=== PATIENT | male | born 1950 | race Caucasian/White ===

== ENCOUNTER 2017-11-16 15:08 | Inpatient (IN) ==
[2017-11-16] MEDS ORDERED: 0.9 % Sodium Chloride 1,000 ML IVC ONE (15:21)
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
[2017-11-16] MEDS ORDERED: Tdap (Boostrix) Vaccine 0.5 ML SYRINGE IM ONE (15:35)
[2017-11-16] MEDS ORDERED: *HR* FentaNYL (PF) 100 MCG/2 ML VIAL IVP ONE ×2 (16:19→19:20)
[2017-11-16] MEDS ORDERED: Ondansetron 4 MG/2 ML VIAL IVP ONE ×2 (16:19→21:01)
[2017-11-16 16:40] LABS: Basophils # 0.1 K/mcL (0.0-0.2); Basophils % 0.6 %; Eosinophils % 0.3 %; Hematocrit 48.7 % (37.5-50.1); Hemoglobin 16.8 g/dL (12.9-16.9); Immature Granulocytes % 0.3 % (0-4); Lymphocytes # 1.4 K/mcL (0.6-4.6); Lymphocytes % 12.8 %; Mean Corpuscular HGB Conc 34.5 g/dL (31.6-35.5); Mean Corpuscular Hemoglobin 32.2 pg (28.0-33.3); Mean Corpuscular Volume 93.5 fL (83.0-100.0); Mean Platelet Volume 8.9 fL (9.4-12.4); Monocytes % 8.9 %; Neutrophils # 8.4 K/mcL (1.6-8.9); Platelet Count 233 K/mcL (140-400); Red Blood Count 5.21 M/mcL (4.19-5.50); Red Cell Distribution Width 12.3 % (11.5-14.5); Segmented Neutrophils % 77.1 %
[2017-11-16 16:56] LABS: Ethanol 60 mg/dL (0-10)
[2017-11-16 16:57] LABS: BUN/Creatinine Ratio 8 (6-26); Blood Urea Nitrogen 4 mg/dL (8-23); Calcium 9.5 mg/dL (8.6-10.3); Carbon Dioxide 22 mEq/L (23-29); Chloride 100 mEq/L (98-107); Glucose 102 mg/dL (70-105); Osmolality,Calculated 273 (280-300); Potassium 3.8 mEq/L (3.5-5.1); Sodium 133 mEq/L (136-145); eGFR For African Americans > 60 (> 60); eGFR For Non-African Americans > 60 (> 60)
[2017-11-16 17:05] LABS: Acetaminophen < 1.0 mcg/mL (10-30)
[2017-11-16 17:06] LABS: Salicylate < 5.0 mg/dL (15.0-30.0)
[2017-11-16 17:36] LABS: Albumin 4.1 g/dL (3.5-5.7); Albumin/Globulin Ratio 1.5 (1.1-2.2); Bilirubin,Direct 0.3 mg/dL (0.0-0.2); Bilirubin,Indirect 0.8 mg/dL (0.0-1.2); Bilirubin,Total 1.1 mg/dL (0.3-1.0); Globulin 2.8 g/dL (2.4-3.5); Total Protein 6.9 g/dL (6.4-8.9)
[2017-11-16] MEDS ORDERED: Piperacillin/Tazobactam 3.375 GM in 0.9 % Sodium Chloride Mini Bag 100 ML IVPB ONE (17:59)
[2017-11-16 19:46] LABS: Bilirubin,Urine Negative (Negative); Blood,Urine Negative (Negative); Clarity,Urine Clear (Clear); Color,Urine Yellow (Yellow); Glucose,Urine (UA) Normal (Normal); Ketones,Urine 15 mg/dL (Negative); Leukocyte Esterase,Urine Negative (Negative); Nitrite,Urine Negative (Negative); Protein,Urine Negative (Neg-Trace); Specific Gravity,Urine > 1.030 (1.010-1.025); Urobilinogen,Urine Normal (Normal)
[2017-11-16 20:29] LABS: Amphetamine Screen,Urine Negative ng/mL (Cutoff=1000); Barbiturate Screen,Urine Negative ng/mL (Cutoff=200); Benzodiazepines Screen,Urine Negative ng/mL (Cutoff=200); Cannabinoid Screen,Urine Negative ng/mL (Cutoff = 50); Cocaine Screen,Urine Negative ng/mL (Cutoff= 300); Opiate Screen,Urine Negative ng/mL (Cutoff=300); Phencyclidine Screen,Urine Negative ng/mL (Cutoff=25)
[2017-11-16] MEDS ORDERED: Ondansetron 4 MG/2 ML VIAL ONE ×2 (21:01→21:42)
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
[2017-11-16] MEDS ORDERED: Albuterol 2.5 MG/3 ML NEBULIZER IH ONE (21:34)
--- NOTE | 2017-11-16 21:38 | Anesthesia Evaluation PreOp ---
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: Denies Any Significant HX Other Medical History: Denies Any Significant HX Anesthesia History: No Prior Anesthetic Complications Alcohol Use: recent Drug use: none Medications and Allergies 3 Allergy/AdvReac Type Severity Reaction Status Date / Time quetiapine [From Seroquel] Allergy Nausea Verified 05/28/15 00:23 - Meds/Allergy Pre-op Review Medications Reviewed: Yes Allergies Reviewed: Yes Beta Blockers on Current Med List: No Anesthesia Results - Labs 11/16/17 16:07 11/16/17 16:07 - Imaging EKG: report reviewed Anesthesia Exam O2 Sat Height 1.83 m Weight 90.718 kg O2 Sat by Pulse Oximetry 96 O2 Sat by Pulse Oximetry 95 O2 Sat by Pulse Oximetry 95 Vital Signs Temp Pulse Resp BP Pulse Ox 97.9 F 76 18 133/78 95 11/16/17 15:09 11/16/17 15:09 11/16/17 15:09 11/16/17 15:09 11/16/17 15:09 Height: 6'0 Weight: 200 lbs NPO (# of Hours): MN Pain Scale: 1 - HEENT Pupil (Motor): Pupils equal, EOMI Mallampati: III Teeth: Edentulous Oral Opening: Less than or equal to 3 - COUNTER POCKET TRIMMER LOC: Oriented COUNTER POCKET TRIMMER Motor: Normal RUE, Normal LUE, Normal RLE, Normal LLE, Normal Face COUNTER POCKET TRIMMER Sensory: Normal: RUE, LUE, RLE, LLE, Face - Cardiac Rhythm: Regular Murmur: None JVD: No Carotid Bruit: No - Pulmonary Breath Sounds: bilateral Clear Respiratory Effort: Symmetrical Anesthesia Assess/Plan ASA Score: 2 Modified Tera Scale for Level of Consciousness: Cooperative, oriented, and tranquil Anesthetic Plan: General Monitoring Plan: Standard Monitors Recovery Plan: PACU (Discussed GA, agrees to proceed)
[2017-11-16] MEDS ORDERED: *HR* Propofol 200 MG/20 ML VIAL IVP ONE (21:41)
[2017-11-16] MEDS ORDERED: *HR* FentaNYL (PF) 100 MCG/2 ML VIAL ONE (21:41)
[2017-11-16] MEDS ORDERED: Lidocaine -MPF 2% 2 ML VIAL ONE (21:42)
[2017-11-16] MEDS ORDERED: Dexamethasone 4 MG/ML VIAL ONE (21:42)
[2017-11-16] MEDS ORDERED: *HR* Succinylcholine 200 MG/10 ML VIAL IVP ONE (21:42)
[2017-11-16] MEDS ORDERED: *HR* Rocuronium Bromide 50 MG/5 ML VIAL ONE (21:42)
[2017-11-16] MEDS ORDERED: Ringers Solution, Lactated 1,000 ML ONE (22:06)
[2017-11-16] MEDS ORDERED: Acetaminophen IV 1,000 MG/100 ML INFUS..BTL ONE (22:35)
[2017-11-16] MEDS ORDERED: MORPHINE SUL Oral CONC 10 MG/0.5 ML ORAL.SYG SL PRN (22:56)
[2017-11-16] MEDS ORDERED: Neostigmine Methylsulfate 3 MG/3 ML SYRINGE ONE (23:16)
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
--- NOTE | 2017-11-17 00:02 | Anesthesia Evaluation Post Op ---
Date of Encounter: 11/17/17 Time of Encounter: 00:10 - Vital Signs Vital Signs: Vital Signs/O2 Sat/Glucose, Most Current Temp Pulse Resp BP Pulse Ox 11/16/17 23:53 70 18 140/79 96 11/16/17 23:43 68 18 151/90 96 11/16/17 23:33 97.5 F L 63 16 133/80 98 11/16/17 21:49 18 92 11/16/17 21:34 82 16 154/81 96 - Lungs Lungs: Clear Ascult./Percussion - Airway Airway: Non-obstructed - Cardiovascular Regular Rate - Mental Status Mental Status: Alert & Oriented, Answers Appropriately - Pain Pain Scale: 1 - Nausea Vomiting Nausea Vomiting: Not Present - Hydration Hydration: Ice chips - Discharge PostOp Status: Transfer Patient to floor
[2017-11-17] MEDS ORDERED: *HR* Metoprolol 5 MG/5 ML VIAL IVP PRN (00:13)
[2017-11-17] MEDS: D5% in 0.45% NACL w KCl 20 MEQ/1,000 ML MLS IVC SCH ×2 (01:01→11:06)
[2017-11-17] MEDS: *HR* OxyCODONE/APAP 5/325 TABLET PO PRN ×2 (01:01→08:10)
[2017-11-17] MEDS: traMADol 50 MG TABLET PO PRN ×3 (04:30→21:16)
[2017-11-17] MEDS: *HR* Enoxaparin 40 MG/0.4 ML SYRINGE SQ SCH (06:12)
[2017-11-17] MEDS ORDERED: *HR* LORazepam 2 MG/ML VIAL IVP PRN (08:25)
[2017-11-17 09:57] LABS: Basophils % 0.1 %; Hematocrit 46.3 % (37.5-50.1); Immature Granulocytes % 0.4 % (0-4); Lymphocytes # 0.9 K/mcL (0.6-4.6); Lymphocytes % 6.9 %; Mean Corpuscular HGB Conc 34.6 g/dL (31.6-35.5); Mean Corpuscular Hemoglobin 32.5 pg (28.0-33.3); Mean Corpuscular Volume 93.9 fL (83.0-100.0); Mean Platelet Volume 9.2 fL (9.4-12.4); Monocytes % 7.2 %; Neutrophils # 11.4 K/mcL (1.6-8.9); Platelet Count 230 K/mcL (140-400); Red Blood Count 4.93 M/mcL (4.19-5.50); Red Cell Distribution Width 12.6 % (11.5-14.5); Segmented Neutrophils % 85.4 %
[2017-11-17] MEDS: Thiamine (B-1) 100 MG TABLET PO SCH (09:59)
[2017-11-17] MEDS: Folic Acid 1 MG TABLET PO SCH (09:59)
[2017-11-17] MEDS: Vitamin B Complex/Vit C/Vit E 1 EACH TABLET PO SCH (09:59)
[2017-11-17 10:14] LABS: BUN/Creatinine Ratio 10 (6-26); Blood Urea Nitrogen 6 mg/dL (8-23); Calcium 9.2 mg/dL (8.6-10.3); Carbon Dioxide 26 mEq/L (23-29); Chloride 102 mEq/L (98-107); Glucose 141 mg/dL (70-105); Osmolality,Calculated 278 (280-300); Potassium 4.1 mEq/L (3.5-5.1); Sodium 134 mEq/L (136-145); eGFR For African Americans > 60 (> 60); eGFR For Non-African Americans > 60 (> 60)
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
[2017-11-17] MEDS ORDERED: Ondansetron 4 MG/2 ML VIAL IVP PRN (14:30)
[2017-11-17] MEDS ORDERED: Lidocaine OINT 35.44 GM TUBE TP ONE (15:06)
[2017-11-17] MEDS ORDERED: *HR* OxyCODONE Immed Rel 5 MG TABLET PO PRN (15:07)
[2017-11-17] MEDS ORDERED: Ketorolac 15 MG/ML VIAL IVP PRN (15:08)
[2017-11-17] MEDS: OXYCODONE Oral CONC 10 MG/0.5 ML ORAL.SYG SL PRN (16:13)
[2017-11-17] MEDS: 0.9 % Sodium Chloride 1,000 ML IVC SCH (16:13)
[2017-11-17] MEDS: Chloraseptic Spray 177 ML BOTTLE MM PRN (21:16)
[2017-11-18] MEDS: 0.9 % Sodium Chloride 1,000 ML IVC SCH (00:19)
[2017-11-18] MEDS: Chloraseptic Spray 177 ML BOTTLE MM PRN ×4 (01:12→21:32)
[2017-11-18] MEDS ORDERED: *HR* LORazepam 2 MG/ML VIAL IVP ONE (01:27)
[2017-11-18 05:08] LABS: Basophils % 0.3 %; Eosinophils % 0.1 %; Hematocrit 44.1 % (37.5-50.1); Hemoglobin 14.7 g/dL (12.9-16.9); Immature Granulocytes % 0.3 % (0-4); Lymphocytes # 1.8 K/mcL (0.6-4.6); Lymphocytes % 14.9 %; Mean Corpuscular HGB Conc 33.3 g/dL (31.6-35.5); Mean Corpuscular Hemoglobin 32.3 pg (28.0-33.3); Mean Corpuscular Volume 96.9 fL (83.0-100.0); Mean Platelet Volume 9.4 fL (9.4-12.4); Monocytes # 1.3 K/mcL (0.0-1.3); Monocytes % 10.4 %; Neutrophils # 8.9 K/mcL (1.6-8.9); Platelet Count 204 K/mcL (140-400); Red Blood Count 4.55 M/mcL (4.19-5.50); Red Cell Distribution Width 12.8 % (11.5-14.5)
[2017-11-18 05:26] LABS: BUN/Creatinine Ratio 11 (6-26); Blood Urea Nitrogen 7 mg/dL (8-23); Calcium 9.2 mg/dL (8.6-10.3); Carbon Dioxide 31 mEq/L (23-29); Chloride 102 mEq/L (98-107); Glucose 97 mg/dL (70-105); Osmolality,Calculated 284 (280-300); Potassium 3.6 mEq/L (3.5-5.1); Sodium 138 mEq/L (136-145); eGFR For African Americans > 60 (> 60); eGFR For Non-African Americans > 60 (> 60)
[2017-11-18] MEDS: *HR* Enoxaparin 40 MG/0.4 ML SYRINGE SQ SCH (06:08)
[2017-11-18] MEDS ORDERED: Potassium Chloride 40 MEQ, Lidocaine 1% 2 ML in D5% in Water 500 ML IVPB ONE (06:30)
[2017-11-18] MEDS: D5% in 0.45% NACL w KCl 20 MEQ/1,000 ML MLS IVC SCH ×2 (07:37→21:11)
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
[2017-11-18] MEDS: Vitamin B Complex/Vit C/Vit E 1 EACH TABLET PO SCH (08:52)
[2017-11-18] MEDS: Thiamine (B-1) 100 MG TABLET PO SCH (08:52)
[2017-11-18] MEDS: Folic Acid 1 MG TABLET PO SCH (08:52)
[2017-11-18] MEDS: Pantoprazole 40 MG VIAL IVP SCH (08:53)
[2017-11-18] MEDS: OXYCODONE Oral CONC 10 MG/0.5 ML ORAL.SYG SL PRN ×3 (08:53→22:47)
[2017-11-18] MEDS: traMADol 50 MG TABLET PO PRN (13:33)
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
[2017-11-18] MEDS: Thiamine (B-1) 100 MG, Folic Acid 1 MG, MVI, adult with vitamin K 10 ML in 0.9 % Sodi... IVPB SCH (17:54)
[2017-11-19] MEDS: traMADol 50 MG TABLET PO PRN ×3 (04:07→21:04)
[2017-11-19] MEDS: D5% in 0.45% NACL w KCl 20 MEQ/1,000 ML MLS IVC SCH ×2 (04:30→14:40)
[2017-11-19] MEDS: OXYCODONE Oral CONC 10 MG/0.5 ML ORAL.SYG SL PRN ×3 (04:58→22:29)
[2017-11-19] MEDS: *HR* Enoxaparin 40 MG/0.4 ML SYRINGE SQ SCH (05:00)
[2017-11-19] MEDS: Vitamin B Complex/Vit C/Vit E 1 EACH TABLET PO SCH (07:46)
[2017-11-19] MEDS: Folic Acid 1 MG TABLET PO SCH (07:46)
[2017-11-19] MEDS: Thiamine (B-1) 100 MG TABLET PO SCH (07:46)
[2017-11-19] MEDS: Pantoprazole 40 MG VIAL IVP SCH (08:00)
[2017-11-19] MEDS: Chloraseptic Spray 177 ML BOTTLE MM PRN ×2 (08:00→13:59)
[2017-11-19 08:28] LABS: Basophils % 0.4 %; Eosinophils % 0.3 %; Hematocrit 39.9 % (37.5-50.1); Hemoglobin 13.4 g/dL (12.9-16.9); Immature Granulocytes % 0.4 % (0-4); Lymphocytes # 1.2 K/mcL (0.6-4.6); Lymphocytes % 12.9 %; Mean Corpuscular HGB Conc 33.6 g/dL (31.6-35.5); Mean Corpuscular Hemoglobin 32.4 pg (28.0-33.3); Mean Corpuscular Volume 96.6 fL (83.0-100.0); Mean Platelet Volume 9.2 fL (9.4-12.4); Monocytes # 0.9 K/mcL (0.0-1.3); Monocytes % 9.9 %; Neutrophils # 7.2 K/mcL (1.6-8.9); Platelet Count 187 K/mcL (140-400); Red Blood Count 4.13 M/mcL (4.19-5.50); Red Cell Distribution Width 12.3 % (11.5-14.5); Segmented Neutrophils % 76.1 %
[2017-11-19 08:42] LABS: BUN/Creatinine Ratio 11 (6-26); Blood Urea Nitrogen 6 mg/dL (8-23); Calcium 8.6 mg/dL (8.6-10.3); Carbon Dioxide 26 mEq/L (23-29); Chloride 102 mEq/L (98-107); Glucose 300 mg/dL (70-105); Osmolality,Calculated 285 (280-300); Potassium 4.4 mEq/L (3.5-5.1); Sodium 133 mEq/L (136-145); eGFR For African Americans > 60 (> 60); eGFR For Non-African Americans > 60 (> 60)
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
[2017-11-19 11:17] LABS: Magnesium 1.8 mg/dL (1.6-2.6); Phosphorous 2.4 mg/dL (2.7-4.5)
[2017-11-19] MEDS ORDERED: Tetrahydrozoline 15 ML BOTTLE RIGHT EYE PRN (16:10)
[2017-11-19] MEDS ORDERED: Tetrahydrozoline 15 ML BOTTLE BOTH EYES PRN (16:10)
[2017-11-19] MEDS ORDERED: 0.9 % Sodium Chloride 1,000 ML IVC SCH (16:15)
[2017-11-19] MEDS: Thiamine (B-1) 100 MG, Folic Acid 1 MG, MVI, adult with vitamin K 10 ML in 0.9 % Sodi... IVPB SCH (17:12)
[2017-11-20] MEDS: *HR* Enoxaparin 40 MG/0.4 ML SYRINGE SQ SCH (06:08)
[2017-11-20 09:09] LABS: BUN/Creatinine Ratio 11 (6-26); Blood Urea Nitrogen 6 mg/dL (8-23); Calcium 8.7 mg/dL (8.6-10.3); Carbon Dioxide 25 mEq/L (23-29); Chloride 102 mEq/L (98-107); Glucose 90 mg/dL (70-105); Magnesium 1.7 mg/dL (1.6-2.6); Osmolality,Calculated 275 (280-300); Phosphorous 3.2 mg/dL (2.7-4.5); Potassium 3.3 mEq/L (3.5-5.1); Sodium 134 mEq/L (136-145); eGFR For African Americans > 60 (> 60); eGFR For Non-African Americans > 60 (> 60)
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
[2017-11-20] MEDS: Pantoprazole 40 MG VIAL IVP SCH (10:03)
[2017-11-20] MEDS: Thiamine (B-1) 100 MG TABLET PO SCH (10:04)
[2017-11-20] MEDS: Vitamin B Complex/Vit C/Vit E 1 EACH TABLET PO SCH (10:04)
[2017-11-20] MEDS: Folic Acid 1 MG TABLET PO SCH (10:04)
[2017-11-20] MEDS: traMADol 50 MG TABLET PO PRN ×2 (10:08→17:44)
[2017-11-20 15:24] VITALS: BP 150/76
--- NOTE | 2017-11-22 08:56 | Electrocardiograph Report ---
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
== END 2017-11-20 18:00 | DRG 580 ==
LOC: EMEROO 15:08 → 3ANU 15:08
PROVIDERS: ADMIT Surgery; ATTEND Surgery

== ENCOUNTER 2018-01-25 08:12 | Inpatient (IN) ==
--- NOTE | 2018-01-25 08:16 | Emergency Department Note ---
Disposition Clinical Impression: Suicidal ideation Disposition: Still a Patient Referrals: NONE,PCP [Primary Care Provider] - Forms: ED Satisfaction Letter General Adult HPI - General Chief complaint: ED Psychiatric Symptoms Stated complaint: Doesn't want to be alive Time Seen by Provider: 01/25/18 08:15 - Related Data Previous Rx's Medication Instructions Recorded Ibuprofen 600 mg PO Q8HR PRN #30 tablet 11/20/17 Budesonide/Formoterol 160/4.5 1 puff IH BIDR #1 inhaler 11/27/17 [Symbicort 160/4.5] Dicyclomine [Bentyl] 20 mg PO Q6H PRN #60 capsule 11/27/17 Doxycycline 100 mg PO BID #16 capsule 11/27/17 Ipratropium/Albuterol Neb [Duoneb] 3 ml IH [id number] PRN #1 inhsol 11/27/17 Melatonin 6 mg PO HS PRN #60 tablet 11/27/17 Sertraline [Zoloft] 100 mg PO DAILY 30 Days #30 tablet 11/27/17 Tetrahydrozoline [Visine] 1 drop BOTH EYES QID PRN #1 bottle 11/27/17 Tramadol HCl [Ultram] 50 mg PO QID PRN 7 Days #28 tab 11/27/17 hydrOXYzine pamoate [HydrOXYzine 25 mg PO TID PRN 30 Days #90 11/27/17 Pamoate] capsule traZODone [TraZODone] 150 mg PO HS PRN #90 tablet 11/27/17 Allergies Allergy/AdvReac Type Severity Reaction Status Date / Time quetiapine [From Seroquel] AdvReac Dizziness Verified 01/25/18 09:02 trazodone AdvReac Dizziness Verified 01/25/18 09:02 Past Medical History - Past Medical History Medical history: Reports: COPD Surgical history: Reports: other Psychiatric history: Reports: depression, previous psychiatric hospitalization - Social History Smoking Status: Current every day smoker Smokeless Tobacco Status: No Alcohol use: Reports: recent Drug use: Reports: none Course Vital Signs Temperature 98.1 F 01/25/18 08:15 Pulse Rate 74 01/25/18 08:15 Respiratory Rate 15 01/25/18 08:15 Blood Pressure 138/80 01/25/18 08:15 O2 Sat by Pulse Oximetry 96 01/25/18 08:15 Temperature 98.1 F 01/25/18 08:15 Pulse Rate 61 01/25/18 16:51 Respiratory Rate 15 01/25/18 08:15 Blood Pressure 123/79 01/25/18 16:51 O2 Sat by Pulse Oximetry 97 01/25/18 16:51 Oxygen Delivery Oxygen Delivery Room Air Medical Decision Making - Lab Data Result diagrams: 01/25/18 08:22 01/25/18 08:22 Lab Results 01/25/18 01/25/18 01/25/18 Range/Units 08:22 08:22 08:34 WBC 7.8 (4.3-11.1) K/mcL RBC 4.93 (4.19-5.50) M/mcL Hgb 16.0 (12.9-16.9) g/dL Hct 46.3 (37.5-50.1) % MCV 93.9 (83.0-100.0) fL MCH 32.5 (28.0-33.3) pg MCHC 34.6 (31.6-35.5) g/dL RDW 13.2 (11.5-14.5) % Plt Count 300 (140-400) K/mcL MPV 8.6 L (9.4-12.4) fL Immature Gran % 0.4 (0-4) % Seg Neutrophils % 56.0 % Lymphocytes % 33.4 % Monocytes % 7.9 % Eosinophils % 0.9 % Basophils % 1.4 % Neutrophils # 4.4 (1.6-8.9) K/mcL Lymphocytes # 2.6 (0.6-4.6) K/mcL Monocytes # 0.6 (0.0-1.3) K/mcL Eosinophils # 0.1 (0.0-0.6) K/mcL Basophils # 0.1 (0.0-0.2) K/mcL Sodium 127 L (136-145) mEq/L Potassium 3.1 L (3.5-5.1) mEq/L Chloride 96 L (98-107) mEq/L Carbon Dioxide 20 L (23-29) mEq/L BUN 5 L (8-23) mg/dL Creatinine 0.58 L (0.70-1.30) mg/dL Est GFR ( Amer) > 60 (> 60) Est GFR (Non-Af Amer) > 60 (> 60) BUN/Creatinine Ratio 9 (6-26) Glucose 103 (70-105) mg/dL Calculated Osmolality 262 L (280-300) Calcium 9.4 (8.6-10.3) mg/dL Total Bilirubin 0.6 (0.3-1.0) mg/dL Direct Bilirubin 0.2 (0.0-0.2) mg/dL Indirect Bilirubin 0.4 (0.0-1.2) mg/dL AST 21 (13-39) Units/L ALT 17 (7-52) Units/L Alkaline Phosphatase 99 (34-104) Units/L Serum Total Protein 7.3 (6.4-8.9) g/dL Albumin 4.2 (3.5-5.7) g/dL Globulin 3.1 (2.4-3.5) g/dL Albumin/Globulin Ratio 1.4 (1.1-2.2) Salicylates < 2.5 L (15.0-30.0) mg/dL Urine Opiates Screen Negative (Rbewgb=819) ng/mL Acetaminophen < 10 L (10-20) mcg/mL Ur Barbiturates Screen Negative (Eitsrw=348) ng/mL Ur Phencyclidine Scrn Negative (Cutoff=25) ng/mL Ur Amphetamines Screen Negative (Huxssh=5672) ng/mL U Benzodiazepines Scrn Negative (Ikghpd=389) ng/mL Urine Cocaine Screen Negative (Cutoff= 300) ng/mL U Marijuana (THC) Screen Negative (Cutoff = 50) ng/mL Ethyl Alcohol 244 H (Less than 10) mg/dL 01/25/18 01/25/18 01/25/18 Range/Units 13:59 16:06 17:01 WBC (4.3-11.1) K/mcL RBC (4.19-5.50) M/mcL Hgb (12.9-16.9) g/dL Hct (37.5-50.1) % MCV (83.0-100.0) fL MCH (28.0-33.3) pg MCHC (31.6-35.5) g/dL RDW (11.5-14.5) % Plt Count (140-400) K/mcL MPV (9.4-12.4) fL Immature Gran % (0-4) % Seg Neutrophils % % Lymphocytes % % Monocytes % % Eosinophils % % Basophils % % Neutrophils # (1.6-8.9) K/mcL Lymphocytes # (0.6-4.6) K/mcL Monocytes # (0.0-1.3) K/mcL Eosinophils # (0.0-0.6) K/mcL Basophils # (0.0-0.2) K/mcL Sodium (136-145) mEq/L Potassium (3.5-5.1) mEq/L Chloride (98-107) mEq/L Carbon Dioxide (23-29) mEq/L BUN (8-23) mg/dL Creatinine (0.70-1.30) mg/dL Est GFR ( Amer) (> 60) Est GFR (Non-Af Amer) (> 60) BUN/Creatinine Ratio (6-26) Glucose (70-105) mg/dL Calculated Osmolality (280-300) Calcium (8.6-10.3) mg/dL Total Bilirubin (0.3-1.0) mg/dL Direct Bilirubin (0.0-0.2) mg/dL Indirect Bilirubin (0.0-1.2) mg/dL AST (13-39) Units/L ALT (7-52) Units/L Alkaline Phosphatase (34-104) Units/L Serum Total Protein (6.4-8.9) g/dL Albumin (3.5-5.7) g/dL Globulin (2.4-3.5) g/dL Albumin/Globulin Ratio (1.1-2.2) Salicylates (15.0-30.0) mg/dL Urine Opiates Screen (Oeqfbj=278) ng/mL Acetaminophen (10-20) mcg/mL Ur Barbiturates Screen (Zfhnsb=042) ng/mL Ur Phencyclidine Scrn (Cutoff=25) ng/mL Ur Amphetamines Screen (Bfeufs=2271) ng/mL U Benzodiazepines Scrn (Vyjjvt=542) ng/mL Urine Cocaine Screen (Cutoff= 300) ng/mL U Marijuana (THC) Screen (Cutoff = 50) ng/mL Ethyl Alcohol 135 H 91 H 65 H (Less than 10) mg/dL Attestation Statement - Attestation Attestation: I examined this patient and my medical decision-making was reviewed with the Resident Physician. I agree with the documented findings, disposition and treatment plan as described except to the extent set forth below. [id number] time provided Patient arrives by EMS complaining of suicidal ideation. He states he has a history of depression but has not been taking medications. He appears in no acute distress on exam. Is alert and appropriately interactive with staff. Admits to drinking alcohol prior to arrival. We will attempt to clear him medically for behavioral evaluation 06:00: Care to be endorsed to Dr. Blas at 19:00 pending 1A consultation.
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
[2018-01-25 08:33] LABS: Basophils # 0.1 K/mcL (0.0-0.2); Basophils % 1.4 %; Eosinophils # 0.1 K/mcL (0.0-0.6); Eosinophils % 0.9 %; Hematocrit 46.3 % (37.5-50.1); Immature Granulocytes % 0.4 % (0-4); Lymphocytes # 2.6 K/mcL (0.6-4.6); Lymphocytes % 33.4 %; Mean Corpuscular HGB Conc 34.6 g/dL (31.6-35.5); Mean Corpuscular Hemoglobin 32.5 pg (28.0-33.3); Mean Corpuscular Volume 93.9 fL (83.0-100.0); Mean Platelet Volume 8.6 fL (9.4-12.4); Monocytes # 0.6 K/mcL (0.0-1.3); Monocytes % 7.9 %; Neutrophils # 4.4 K/mcL (1.6-8.9); Platelet Count 300 K/mcL (140-400); Red Blood Count 4.93 M/mcL (4.19-5.50); Red Cell Distribution Width 13.2 % (11.5-14.5)
[2018-01-25 08:49] LABS: Acetaminophen < 10 mcg/mL (10-20); Alanine Aminotransferase 17 Units/L (7-52); Albumin 4.2 g/dL (3.5-5.7); Albumin/Globulin Ratio 1.4 (1.1-2.2); Alkaline Phosphatase 99 Units/L (34-104); Aspartate Amino Transferase 21 Units/L (13-39); BUN/Creatinine Ratio 9 (6-26); Bilirubin,Direct 0.2 mg/dL (0.0-0.2); Bilirubin,Indirect 0.4 mg/dL (0.0-1.2); Bilirubin,Total 0.6 mg/dL (0.3-1.0); Blood Urea Nitrogen 5 mg/dL (8-23); Calcium 9.4 mg/dL (8.6-10.3); Carbon Dioxide 20 mEq/L (23-29); Chloride 96 mEq/L (98-107); Ethanol 244 mg/dL (Less than 10); Globulin 3.1 g/dL (2.4-3.5); Glucose 103 mg/dL (70-105); Osmolality,Calculated 262 (280-300); Potassium 3.1 mEq/L (3.5-5.1); Salicylate < 2.5 mg/dL (15.0-30.0); Sodium 127 mEq/L (136-145); Total Protein 7.3 g/dL (6.4-8.9); eGFR For African Americans > 60 (> 60); eGFR For Non-African Americans > 60 (> 60)
[2018-01-25 08:55] LABS: Amphetamine Screen,Urine Negative ng/mL (Cutoff=1000); Barbiturate Screen,Urine Negative ng/mL (Cutoff=200); Benzodiazepines Screen,Urine Negative ng/mL (Cutoff=200); Cannabinoid Screen,Urine Negative ng/mL (Cutoff = 50); Cocaine Screen,Urine Negative ng/mL (Cutoff= 300); Opiate Screen,Urine Negative ng/mL (Cutoff=300); Phencyclidine Screen,Urine Negative ng/mL (Cutoff=25)
[2018-01-25] MEDS ORDERED: Potassium Chloride Elixir 20 MEQ/15 ML UDC PO ONE (10:27)
[2018-01-25] MEDS ORDERED: Ibuprofen 800 MG TABLET PO ONE (16:21)
[2018-01-25] MEDS ORDERED: Thiamine (B-1) 100 MG, Folic Acid 1 MG, MVI, adult with vitamin K 10 ML in 0.9 % Sodi... IVPB ONE (19:15)
[2018-01-25] MEDS ORDERED: *HR* LORazepam 2 MG/ML VIAL IVP PRN ×3 (20:42)
[2018-01-25] MEDS ORDERED: Naloxone 0.4 MG/ML INJ IVP PRN (20:42)
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
[2018-01-25] MEDS: Nicotine 14 MG PATCH.TD24 TD SCH (22:17)
[2018-01-25] MEDS ORDERED: *HR* LORazepam 1 MG TABLET PO ONE (23:58)
[2018-01-26] MEDS ORDERED: Ipratropium/Albuterol Neb 3 ML IH PRN (03:18)
[2018-01-26 06:13] LABS: Basophils # 0.1 K/mcL (0.0-0.2); Basophils % 1.1 %; Eosinophils # 0.1 K/mcL (0.0-0.6); Eosinophils % 1.3 %; Hematocrit 44.3 % (37.5-50.1); Hemoglobin 15.4 g/dL (12.9-16.9); Immature Granulocytes % 0.2 % (0-4); Lymphocytes # 1.9 K/mcL (0.6-4.6); Lymphocytes % 30.2 %; Mean Corpuscular HGB Conc 34.8 g/dL (31.6-35.5); Mean Corpuscular Hemoglobin 32.9 pg (28.0-33.3); Mean Corpuscular Volume 94.7 fL (83.0-100.0); Mean Platelet Volume 8.9 fL (9.4-12.4); Monocytes # 0.8 K/mcL (0.0-1.3); Monocytes % 12.3 %; Neutrophils # 3.5 K/mcL (1.6-8.9); Platelet Count 298 K/mcL (140-400); Red Blood Count 4.68 M/mcL (4.19-5.50); Red Cell Distribution Width 13.2 % (11.5-14.5); Segmented Neutrophils % 54.9 %
[2018-01-26 06:22] LABS: Alanine Aminotransferase 13 Units/L (7-52); Albumin 3.6 g/dL (3.5-5.7); Albumin/Globulin Ratio 1.3 (1.1-2.2); Alkaline Phosphatase 88 Units/L (34-104); Aspartate Amino Transferase 17 Units/L (13-39); BUN/Creatinine Ratio 8 (6-26); Bilirubin,Total 0.8 mg/dL (0.3-1.0); Blood Urea Nitrogen 5 mg/dL (8-23); Carbon Dioxide 27 mEq/L (23-29); Chloride 103 mEq/L (98-107); Chol/HDL Ratio 3.5 (0-4.9); Cholesterol 174 mg/dL (< 200); Globulin 2.7 g/dL (2.4-3.5); Glucose 99 mg/dL (70-105); HDL Cholesterol 50 mg/dL (40-59); LDL Cholesterol,Calculated 106 mg/dL (0-99); Magnesium 2.1 mg/dL (1.6-2.6); Osmolality,Calculated 279 (280-300); Potassium 3.5 mEq/L (3.5-5.1); Sodium 136 mEq/L (136-145); Total Protein 6.3 g/dL (6.4-8.9); Triglycerides 92 mg/dL (< 150); eGFR For African Americans > 60 (> 60); eGFR For Non-African Americans > 60 (> 60)
[2018-01-26] MEDS: Thiamine (B-1) 100 MG TABLET PO SCH (08:32)
[2018-01-26] MEDS: Renal Vitamin 1 MG CAPSULE PO SCH (08:32)
[2018-01-26] MEDS: Nicotine 14 MG PATCH.TD24 TD SCH (08:32)
--- NOTE | 2018-01-26 11:27 | Internal Med Progress Note ---
Date of Encounter: 01/26/18 Time of Encounter: 11:24 - Assessment and plan (1) Hyponatremia Current Visit: Yes Status: Acute Assessment and plan: Likely related to alcohol consumption Resolved. Will monitor (2) Suicidal ideation Current Visit: Yes Status: Acute Assessment and plan: Severe depression with suicidal ideation Patient has had multiple suicide attempts in the past Evaluated by Psychiatry Patient to transfer when medically stable. Last drink was <48 hours ago. (3) Alcoholism Current Visit: Yes Status: Acute Assessment and plan: Alcoholism with intoxication on presentation Does not currently appear to be in withdrawal He is not having significant visual hallucinations, tremors, tachycardia or fever Continue CIWA protocol with regular neuro checks Ativan as needed for withdrawal symptoms Replace electrolytes and vitamins CIWA scores currently 5 now is 1 Last drink was night of 01/24 (4) Depression Current Visit: Yes Status: Acute Assessment and plan: Psychiatry consulted, recommendations appreciated Qualifiers: Depression Type: major depressive disorder Major depression recurrence: recurrent Active/Remission status: currently active Major depression episode severity: severe Psychotic features: without psychotic features Qualified Code(s): F33.2 - Major depressive disorder, recurrent severe without psychotic features (5) COPD (chronic obstructive pulmonary disease) Current Visit: No Status: Chronic Assessment and plan: Not in acute exacerbation Qualifiers: COPD type: unspecified COPD Qualified Code(s): J44.9 - Chronic obstructive pulmonary disease, unspecified (6) DVT prophylaxis Current Visit: Yes Status: Acute - Time Spent With Patient Total time spent is greater than 50% in coordination of care (as documented) at patient's floor/unit and/or counseling patient: - Subjective Interval history: No acute events overnight. CIWA scores went from 5 to 1. Patient last drink night of 01/24. 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 - Constitutional Vitals: Temp Pulse Resp BP Pulse Ox 98.6 F 80 16 155/94 96 01/26/18 07:13 01/26/18 07:13 01/26/18 07:13 01/26/18 07:13 01/26/18 07:13 Exam: Gen.: Vitals noted. No acute distress. HEENT: PERRL/EOMI, oropharynx clear, Normocephalic, atraumatic Neck: Supple. No adenopathy. Cardiac: RRR, no murmur, +S1/S2 Pulmonary: CTA bilaterally, no wheezes, rales or rhonchi, equal chest expansion Abdomen: Mild tenderness to palpation throughout his abdomen Back: Nontender throughout. MSK: ROM intact, no joint swelling noted Extremities: no BLE edema, nontender calf, no cyanosis or clubbing Neuro: A&Ox3, moves all extremities, no focal deficits Psych: Patient's mood appears normal, thought pattern is coherent and goal- directed, however he does have some tendency towards flight of though style conversation - Head Head exam: Present: atraumatic, normocephalic - Eye Eye exam: Present: PERRL, conjuntiva pink, sclera anicteric Pupils: Present: PERRL - Neck Neck exam general surgery: Present: supple, trachea midline. Absent: lymphadenopathy - Respiratory Respiratory exam: Present: CTAB. Absent: accessory muscle use, rales, rhonchi, wheezes - Cardiovascular Cardiovascular exam: Present: RRR, +S1, +S2. Absent: diastolic murmur, gallop, rubs, systolic murmur - GI/Abdominal GI/Abdominal exam: Present: normal bowel sounds, soft, no peritoneal signs. Absent: distended, tenderness - Extremities Exam Extremities exam: Present: warm, radial pulses palpable and symmetrical. Absent : calf tenderness, cyanotic, pedal edema - Neurological Exam Neurological exam: Present: CN II-XII intact, oriented X3, no focal deficits. Absent: pronater drift, facial droop, speech deficit - Skin Skin exam: Present: dry, intact Internal Medicine: Result - Labs CBC & Chem 7: 01/26/18 05:25 01/26/18 05:25 Labs: Short CBC 01/26/18 Range/Units 05:25 WBC 6.4 (4.3-11.1) K/mcL Hgb 15.4 (12.9-16.9) g/dL Hct 44.3 (37.5-50.1) % Plt Count 298 (140-400) K/mcL Neutrophils # 3.5 (1.6-8.9) K/mcL BMP 01/26/18 05:25 Sodium 136 D Potassium 3.5 Chloride 103 Carbon Dioxide 27 BUN 5 L Creatinine 0.64 L Glucose 99 Calcium 9.0 Liver Function 04/29/18 Range/Units 05:25 Total Bilirubin 0.8 (0.3-1.0) mg/dL AST 17 (13-39) Units/L ALT 13 (7-52) Units/L Alkaline Phosphatase 88 (34-104) Units/L Albumin 3.6 (3.5-5.7) g/dL Consult Discharge Plan - Plan Referrals: NONE,PCP [Primary Care Provider] -
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
[2018-01-26] MEDS ORDERED: traZODone 50 MG TABLET PO PRN (16:25)
[2018-01-26] MEDS ORDERED: Tetrahydrozoline 15 ML BOTTLE BOTH EYES PRN (16:25)
[2018-01-26] MEDS ORDERED: Melatonin 3 MG TABLET PO PRN (16:25)
[2018-01-26] MEDS ORDERED: hydrOXYzine pamoate 25 MG CAPSULE PO PRN (16:25)
[2018-01-26] MEDS: Budesonide/Formoterol 160/4.5 MDI IH SCH (20:08)
[2018-01-27] MEDS: Budesonide/Formoterol 160/4.5 MDI IH SCH ×2 (08:16→20:49)
[2018-01-27] MEDS: Thiamine (B-1) 100 MG TABLET PO SCH (09:10)
[2018-01-27] MEDS: Renal Vitamin 1 MG CAPSULE PO SCH (09:10)
[2018-01-27] MEDS: Nicotine 14 MG PATCH.TD24 TD SCH (09:11)
--- NOTE | 2018-01-27 13:39 | Internal Med Progress Note ---
Date of Encounter: 01/27/18 Time of Encounter: 10:10 - Assessment and plan (1) Depression Current Visit: Yes Status: Acute Qualifiers: Depression Type: major depressive disorder Major depression recurrence: recurrent Active/Remission status: currently active Major depression episode severity: severe Psychotic features: without psychotic features Qualified Code(s): F33.2 - Major depressive disorder, recurrent severe without psychotic features (2) COPD (chronic obstructive pulmonary disease) Current Visit: No Status: Chronic Qualifiers: COPD type: unspecified COPD Qualified Code(s): J44.9 - Chronic obstructive pulmonary disease, unspecified (3) Suicidal ideation Current Visit: Yes Status: Acute (4) DVT prophylaxis Current Visit: Yes Status: Acute (5) Alcoholism Current Visit: Yes Status: Acute (6) Hyponatremia Current Visit: Yes Status: Acute - Time Spent With Patient Total time spent is greater than 50% in coordination of care (as documented) at patient's floor/unit and/or counseling patient: - Constitutional Vitals: Temp Pulse Resp BP Pulse Ox 98.7 F 76 16 140/82 98 01/27/18 11:00 01/27/18 11:00 01/27/18 11:00 01/27/18 11:00 01/27/18 11:00 Exam: General: vital signs noted, No acute distress, resting comfortably in bed HEENT: head normocephalic/atraumatic, EOMI, moist mucus membranes, Neck: Supple, FROM Cardio: RRR, no murmurs, +S1/S2 Pulm: CTAB, no wheezing, rhonchi, rales. Normal respiratory effort. Abdomen: soft, central abdomen mildly tender to palpation, BS+, nondistended Extremities: No LE edema, no calf tenderness, no cyanosis Back: normal appearance on inspection Neuro: AAOx3, no focal deficit, no speech deficit, CN II-XII grossly intact, moves extremities spontaneously MSK: Strength 5/5 throughout, no visible deformities Skin: clean, dry, intact, no visible rashes Psych: Appropriate mood and affect. Answers questions appropriately. Cooperative with exam Internal Medicine: Result - Labs CBC & Chem 7: 01/26/18 05:25 01/26/18 05:25 Consult Discharge Plan - Plan Referrals: NONE,PCP [Primary Care Provider] -
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
[2018-01-27 20:41] VITALS: BP 135/77
[2018-01-28] MEDS ORDERED: Folic Acid 1 MG TABLET PO SCH (09:00)
== END 2018-01-27 22:15 | disposition home or self-care (01) | DRG 885 ==
LOC: 3BNU 08:12 → EMEROO 08:12 → 3BNU 20:33 → 3ANU 20:47
PROVIDERS: ADMIT Internal Medicine; ATTEND Internal Medicine

== ENCOUNTER 2018-01-27 22:35 | Inpatient (IN) ==
[2018-01-28] MEDS ORDERED: *HR* LORazepam 1 MG TABLET PO PRN (00:25)
[2018-01-28] MEDS ORDERED: hydrOXYzine pamoate 25 MG CAPSULE PO PRN (00:25)
[2018-01-28] MEDS ORDERED: *HR* LORazepam 2 MG/ML VIAL IM PRN (00:25)
[2018-01-28] MEDS ORDERED: Ibuprofen 400 MG TABLET PO PRN (00:25)
[2018-01-28] MEDS ORDERED: Mag Hydrox/Al Hydrox/Simeth 30 ML UDC PO PRN (00:25)
[2018-01-28] MEDS ORDERED: Haloperidol Lactate 5 MG/ML VIAL IM PRN (00:25)
[2018-01-28] MEDS ORDERED: MOM Conc 10 ML UD.LIQ PO PRN (00:25)
[2018-01-28] MEDS ORDERED: traZODone 50 MG TABLET PO PRN (00:25)
[2018-01-28] MEDS ORDERED: Tetrahydrozoline 15 ML BOTTLE BOTH EYES PRN (00:36)
[2018-01-28] MEDS: traZODone 50 MG TABLET PO PRN ×2 (03:19→20:32)
[2018-01-28] MEDS: Ibuprofen 600 MG TABLET PO PRN ×2 (03:20→20:28)
[2018-01-28] MEDS: Melatonin 3 MG TABLET PO PRN ×2 (03:20→20:31)
[2018-01-28] MEDS: hydrOXYzine pamoate 25 MG CAPSULE PO PRN ×2 (03:20→20:37)
[2018-01-28] MEDS: *HR* LORazepam 0.5 MG TABLET PO SCH ×3 (08:46→20:37)
[2018-01-28] MEDS: Budesonide/Formoterol 160/4.5 MDI IH SCH (11:28)
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
[2018-01-29] MEDS: Budesonide/Formoterol 160/4.5 MDI IH SCH ×3 (01:30→20:58)
[2018-01-29] MEDS: *HR* LORazepam 0.5 MG TABLET PO SCH ×3 (10:00→20:58)
--- NOTE | 2018-01-29 12:05 | Psychiatry Progress Note ---
Date of Encounter: 01/29/18 Time of Encounter: 11:40 Subjective Interval history: Patient seen today , case d/w treatment team, he has been isolative and keeping to himself, he has been thinking about rehab and things he has to do. he has been worried about his Girl friend having all his info and has access to his accounts and she has used them before. he is still depress and hopeless , isolative and preoccupied. he has craving for alcohol but not as much , he is homeless and will be needing placement. peter increase zoloft to 150 mg , patient agreed to treatment plan. he states he attempted suicide when he was 8 years old , i took every pill in cabinet i was fortunate as my mother was registered nurse , and he was made to vomit. he is still depress and has issues with slee since child , he has been sleeping here better. Review of Systems Psychiatric: Reports: depression, anxiety, suicidal ideation, hopelessness Results - Vital Signs Vital Signs: Temp Pulse Resp BP 98.1 F 68 18 125/77 01/29/18 09:00 01/29/18 09:00 01/29/18 09:00 01/29/18 09:00 Assessment and Plan (1) Major depress dis, severe Current visit: No Status: Acute Risks, benefits, side effects, alternatives discussed w/pt: Yes Patient agreeable to treatment: Yes (2) Suicidal ideation Current visit: No Status: Acute Risks, benefits, side effects, alternatives discussed w/pt: Yes Patient agreeable to treatment: Yes (3) Alcoholism Current visit: No Status: Chronic Risks, benefits, side effects, alternatives discussed w/pt: Yes Patient agreeable to treatment: Yes Consult Discharge Plan - Plan Referrals: NONE,PCP [Primary Care Provider] - Psychiatry Exam - Constitutional Vitals: Temp Pulse Resp BP 98.1 F 68 18 125/77 01/29/18 09:00 01/29/18 09:00 01/29/18 09:00 01/29/18 09:00 General appearance: age & developmentally appropriate - Musculoskeletal Gait: slow Station: other Strength & Tone: normal for patient - Psychiatric Patient Orientation: Yes Person, Yes Time, Yes Place Level of alertness: Alert Behavior: cooperative, anxious Psychomotor activity: Slowed Eye Contact: Maintains Eye Contact Mood Description: Depressed, Anxious Affect description: congruent with mood Speech Volume: Soft/Quiet Speech pattern: slowed Language & Vocabulary: consistent with education Thought Process: Logical Thought Content: Yes Guilt Attention Span Ability: Capable of Focused Attention Memory Description: Grossly Intact Patient Reliability: Reliable Historian Intelligence Estimate: Average Judgment: Limited Insight: Partial
[2018-01-29] MEDS: traZODone 50 MG TABLET PO PRN (21:02)
[2018-01-30] MEDS: *HR* LORazepam 0.5 MG TABLET PO SCH ×3 (08:29→20:40)
[2018-01-30] MEDS: Budesonide/Formoterol 160/4.5 MDI IH SCH ×2 (11:33→20:42)
[2018-01-30] MEDS: Ibuprofen 600 MG TABLET PO PRN (11:57)
--- NOTE | 2018-01-30 13:06 | Psychiatry Progress Note ---
Date of Encounter: 01/30/18 Time of Encounter: 12:40 Subjective Interval history: Patient seen today , cased/w treatment team. Patient has been isolative and withdrawn , he has not showered since here and last night did not sleep more than 1 hour from 6-7. he states his mind is racing and he is feels depress and [place] , he denies suicidal ideation, he still has poor insight in his alcohol use , feels he can be sober himself , states i was raised muslim and i give up alcohol from september and october for 1 month . he is not interested in rehab. at present still depress, hopeless and poor sleep. Will START remeron 7.5 mg hs. add gabapentin 100 mg tid and consider Naltrexone 50 mg as he is interested. denies side effects. Review of Systems Psychiatric: Reports: depression, anxiety, suicidal ideation, hopelessness Results - Vital Signs Vital Signs: Temp Pulse Resp BP 97.7 F 90 16 125/81 01/30/18 08:54 01/30/18 08:54 01/30/18 08:54 01/30/18 08:54 Assessment and Plan (1) Major depress dis, severe Current visit: No Status: Acute Risks, benefits, side effects, alternatives discussed w/pt: Yes Patient agreeable to treatment: Yes (2) Suicidal ideation Current visit: No Status: Acute Risks, benefits, side effects, alternatives discussed w/pt: Yes Patient agreeable to treatment: Yes (3) Alcoholism Current visit: No Status: Chronic Risks, benefits, side effects, alternatives discussed w/pt: Yes Patient agreeable to treatment: Yes Consult Discharge Plan - Plan Referrals: [facility] [employer] [employer], [facility] [Outside] Mago Esposito [Advanced Practice Nurse] - Psychiatry Exam - Constitutional Vitals: Temp Pulse Resp BP 97.7 F 90 16 125/81 01/30/18 08:54 01/30/18 08:54 01/30/18 08:54 01/30/18 08:54 General appearance: age & developmentally appropriate, well-groomed, well- nourished - Musculoskeletal Gait: slow Station: relaxed Strength & Tone: normal for patient - Psychiatric Patient Orientation: Yes Person, Yes Time, Yes Place Level of alertness: Alert Behavior: cooperative, withdrawn Psychomotor activity: Slowed Eye Contact: Maintains Eye Contact Mood Description: Depressed, Anxious Affect description: congruent with mood Speech Volume: Soft/Quiet Speech pattern: coherent, slowed Language & Vocabulary: consistent with education Thought Process: Linear, Goal Oriented Thought Content: Yes Guilt Perceptual Disturbances: No Auditory hallucinations, No Visual hallucinations Attention Span Ability: Capable of Focused Attention Memory Description: Grossly Intact Patient Reliability: Reliable Historian Fund of knowledge: Yes abstraction ability, Yes aware of current events Intelligence Estimate: Average Judgment: Limited Insight: Partial
[2018-01-30] MEDS: Gabapentin 100 MG CAPSULE PO SCH ×2 (15:35→20:41)
[2018-01-30] MEDS: Mirtazapine 15 MG TABLET PO SCH (20:41)
[2018-01-30] MEDS: traZODone 50 MG TABLET PO PRN (20:42)
[2018-01-31] MEDS: Gabapentin 100 MG CAPSULE PO SCH ×3 (09:08→21:06)
[2018-01-31] MEDS: Budesonide/Formoterol 160/4.5 MDI IH SCH ×2 (09:09→21:07)
[2018-01-31] MEDS: *HR* LORazepam 0.5 MG TABLET PO SCH (09:09)
--- NOTE | 2018-01-31 12:16 | Psychiatry Progress Note ---
Date of Encounter: 01/31/18 Time of Encounter: 12:00 Subjective Interval history: Patient seen today , case d/w treatment team. patient more isolative and sad as his friend refused to take him and he was looking forward to that. he is very dysphroic and down , he slept well with medication , he was started on gabapentin and zoloft increased. denies side effects. poor insight in his alcohol use disorder, he is willing to try Naltrexone and it will be started today. Review of Systems Psychiatric: Reports: depression, anxiety, suicidal ideation, hopelessness Results - Vital Signs Vital Signs: Temp Pulse Resp BP 98.4 F 93 14 120/87 01/31/18 09:00 01/31/18 09:00 01/31/18 09:00 01/31/18 09:00 Assessment and Plan (1) Major depress dis, severe Current visit: No Status: Acute Plan: Continue hospitalization, Close observation, Suicide Precautions per unit protocol, Encourage participation in unit milieu, Group Therapy, Monitor sleep, Monitor appetite, Family/Supportive other meeting Risks, benefits, side effects, alternatives discussed w/pt: Yes Patient agreeable to treatment: Yes (2) Suicidal ideation Current visit: No Status: Acute Plan: Continue hospitalization, Close observation, Suicide Precautions per unit protocol, Encourage participation in unit milieu, Group Therapy, Monitor sleep, Monitor appetite, Family/Supportive other meeting Risks, benefits, side effects, alternatives discussed w/pt: Yes Patient agreeable to treatment: Yes (3) Alcoholism Current visit: No Status: Chronic Risks, benefits, side effects, alternatives discussed w/pt: Yes Patient agreeable to treatment: Yes Consult Discharge Plan - Plan Referrals: [facility] [Outside] - 02/10/18 2:00 pm (The above appointment is with Kristyn for outpatient mental health and substance abuse counseling services. If you need transportation assistance to and from this appointment, please call [facility] Transportation Services at [phone] at least 4 business days prior to this appointment.) Mago Esposito [Advanced Practice Nurse] - 02/14/18 10:30 am (The above appointment is with Mago Esposito CNP, at Primary Care within [facility]. This appointment is to establish you with a primary care provider. Your needs for medication and/or Vivitrol will be assessed and treated as indicated as well. Please arrive 15 minutes early to complete paperwork. Please bring your insurance card, photo ID and list of current medications to your first appointment. The above appointment(s) reflects first availability. You may contact the office regularly to check for cancellations that may allow you to be seen sooner. If you need transportation assistance to and from this appointment, please call [facility] Transportation Services at [phone] at least 4 business days prior to this appointment.) Psychiatry Exam - Constitutional Vitals: Temp Pulse Resp BP 98.4 F 93 14 120/87 01/31/18 09:00 01/31/18 09:00 01/31/18 09:00 01/31/18 09:00 General appearance: age & developmentally appropriate, well-groomed, well- nourished - Musculoskeletal Gait: slow Station: relaxed Strength & Tone: normal for patient - Psychiatric Patient Orientation: Yes Person, Yes Time, Yes Place Level of alertness: Alert Behavior: cooperative, withdrawn Psychomotor activity: Slowed Eye Contact: Maintains Eye Contact Mood Description: Depressed, Anxious Affect description: congruent with mood, dysphoric Speech Volume: Soft/Quiet Speech pattern: coherent, slowed Language & Vocabulary: consistent with education Thought Process: Linear, Goal Oriented Thought Content: Yes Guilt Perceptual Disturbances: No Auditory hallucinations, No Visual hallucinations Attention Span Ability: Capable of Focused Attention Memory Description: Grossly Intact Patient Reliability: Reliable Historian Fund of knowledge: Yes abstraction ability, Yes aware of current events Intelligence Estimate: Average Judgment: Limited Insight: Minimal
[2018-01-31] MEDS: NALTREXONE HCL 50 MG TABLET PO SCH (12:40)
[2018-01-31] MEDS: Ibuprofen 600 MG TABLET PO PRN (20:05)
[2018-01-31] MEDS: Mirtazapine 15 MG TABLET PO SCH (21:06)
[2018-01-31] MEDS: traZODone 50 MG TABLET PO PRN (22:45)
[2018-02-01] MEDS: Gabapentin 100 MG CAPSULE PO SCH ×3 (09:33→20:46)
[2018-02-01] MEDS: NALTREXONE HCL 50 MG TABLET PO SCH (09:33)
[2018-02-01] MEDS: Budesonide/Formoterol 160/4.5 MDI IH SCH ×2 (09:37→20:46)
--- NOTE | 2018-02-01 14:34 | Psychiatry Progress Note ---
Date of Encounter: 02/01/18 Time of Encounter: 14:11 Subjective Interval history: Patient seen today case d/w staff , no event , doing better. sleeping is getting better, depression still there denies suicidal ideation and is still withdrawn and dysphoric. patient is tolerating medication and denies side effects , ativan was discontinued. states he is planning to clean up and as he has not showered and he has been directed to do so . attending some groups. Review of Systems Psychiatric: Reports: depression, anxiety, suicidal ideation, hopelessness Results - Vital Signs Vital Signs: Temp Pulse Resp BP 97.8 F 93 18 130/80 02/01/18 09:00 02/01/18 09:00 02/01/18 09:00 02/01/18 09:00 Assessment and Plan (1) Major depress dis, severe Current visit: No Status: Acute Plan: Continue hospitalization, Close observation, Suicide Precautions per unit protocol, Encourage participation in unit milieu, Group Therapy, Monitor sleep, Monitor appetite, Family/Supportive other meeting Risks, benefits, side effects, alternatives discussed w/pt: Yes Patient agreeable to treatment: Yes (2) Suicidal ideation Current visit: No Status: Acute Plan: Continue hospitalization, Close observation, Suicide Precautions per unit protocol, Encourage participation in unit milieu, Group Therapy, Monitor sleep, Monitor appetite, Family/Supportive other meeting Risks, benefits, side effects, alternatives discussed w/pt: Yes Patient agreeable to treatment: Yes (3) Alcoholism Current visit: No Status: Chronic Risks, benefits, side effects, alternatives discussed w/pt: Yes Patient agreeable to treatment: Yes Consult Discharge Plan - Plan Referrals: [facility], [facility] [Outside] - 02/10/18 2:00 pm (The above appointment is with Kristyn for outpatient mental health and substance abuse counseling services. If you need transportation assistance to and from this appointment, please call [facility] Transportation Services at [phone] at least 4 business days prior to this appointment.) Mago Esposito [Advanced Practice Nurse] - 02/14/18 10:30 am (The above appointment is with Mago Esposito CNP, at Primary Care within [facility]. This appointment is to establish you with a primary care provider. Your needs for medication and/or Vivitrol will be assessed and treated as indicated as well. Please arrive 15 minutes early to complete paperwork. Please bring your insurance card, photo ID and list of current medications to your first appointment. The above appointment(s) reflects first availability. You may contact the office regularly to check for cancellations that may allow you to be seen sooner. If you need transportation assistance to and from this appointment, please call [facility] Transportation Services at [phone] at least 4 business days prior to this appointment.) Psychiatry Exam - Constitutional Vitals: Temp Pulse Resp BP 97.8 F 93 18 130/80 02/01/18 09:00 02/01/18 09:00 02/01/18 09:00 02/01/18 09:00 General appearance: disheveled - Musculoskeletal Gait: slow Station: relaxed Strength & Tone: normal for patient - Psychiatric Patient Orientation: Yes Person, Yes Time, Yes Place Level of alertness: Alert Behavior: cooperative, anxious, withdrawn Psychomotor activity: Slowed Eye Contact: Maintains Eye Contact Mood Description: Depressed, Anxious Affect description: congruent with mood, dysphoric Speech Volume: Soft/Quiet Speech pattern: coherent, slowed Language & Vocabulary: consistent with education Thought Process: Intact, Logical Thought Content: Yes Guilt Perceptual Disturbances: No Auditory hallucinations, No Visual hallucinations Attention Span Ability: Capable of Focused Attention Memory Description: Grossly Intact Patient Reliability: Reliable Historian Fund of knowledge: Yes abstraction ability, Yes aware of current events Intelligence Estimate: Average Judgment: Limited Insight: Partial
[2018-02-01] MEDS: Mirtazapine 15 MG TABLET PO SCH (20:46)
[2018-02-01] MEDS: Ibuprofen 600 MG TABLET PO PRN (20:48)
[2018-02-02] MEDS: traZODone 50 MG TABLET PO PRN ×2 (00:18→23:10)
[2018-02-02] MEDS: NALTREXONE HCL 50 MG TABLET PO SCH (08:36)
[2018-02-02] MEDS: Gabapentin 100 MG CAPSULE PO SCH ×2 (08:36→20:56)
[2018-02-02] MEDS: Budesonide/Formoterol 160/4.5 MDI IH SCH ×2 (08:36→20:36)
--- NOTE | 2018-02-02 12:05 | Psychiatry Progress Note ---
Date of Encounter: 02/02/18 Time of Encounter: 11:36 Subjective Interval history: Patient seen today case d/w staff. patient was seen in his room as he is feeling like getting sick , he is afebrile states i was sweating and dizzy . Patient remains same , dysphoric and psychomotor retardation , he is not suicidal but remains withdrawn and isolative. he is compliant with medication and also Naltrexone started for Alcohol will decrease gabapentin to 100 [address] him on fall precaution as he is dizzy , closely monitor for fever and is he gets any worse , he denies cough , sore throat ,stomache ache or any abnormal bowel movements. Review of Systems Psychiatric: Reports: depression, anxiety, suicidal ideation, hopelessness Results - Vital Signs Vital Signs: Temp Pulse Resp BP 98.2 F 87 16 136/77 02/02/18 09:00 02/02/18 09:00 02/02/18 09:00 02/02/18 09:00 Assessment and Plan (1) Major depress dis, severe Current visit: No Status: Acute Plan: Continue hospitalization, Close observation, Suicide Precautions per unit protocol, Encourage participation in unit milieu, Group Therapy, Monitor sleep, Monitor appetite, Family/Supportive other meeting Risks, benefits, side effects, alternatives discussed w/pt: Yes Patient agreeable to treatment: Yes (2) Suicidal ideation Current visit: No Status: Acute Risks, benefits, side effects, alternatives discussed w/pt: Yes Patient agreeable to treatment: Yes (3) Alcoholism Current visit: No Status: Chronic Risks, benefits, side effects, alternatives discussed w/pt: Yes Patient agreeable to treatment: Yes Consult Discharge Plan - Plan Referrals: [facility] [Outside] - 02/10/18 2:00 pm (The above appointment is with Kristyn for outpatient mental health and substance abuse counseling services. If you need transportation assistance to and from this appointment, please call [facility] Transportation Services at [phone] at least 4 business days prior to this appointment.) Mago Esposito [Advanced Practice Nurse] - 02/14/18 10:30 am (The above appointment is with Mago Esposito CNP, at Primary Care within [facility]. This appointment is to establish you with a primary care provider. Your needs for medication and/or Vivitrol will be assessed and treated as indicated as well. Please arrive 15 minutes early to complete paperwork. Please bring your insurance card, photo ID and list of current medications to your first appointment. The above appointment(s) reflects first availability. You may contact the office regularly to check for cancellations that may allow you to be seen sooner. If you need transportation assistance to and from this appointment, please call [facility] Transportation Services at [phone] at least 4 business days prior to this appointment.) Psychiatry Exam - Constitutional Vitals: Temp Pulse Resp BP 98.2 F 87 16 136/77 02/02/18 09:00 02/02/18 09:00 02/02/18 09:00 02/02/18 09:00 General appearance: age & developmentally appropriate, well-groomed, well- nourished - Psychiatric Patient Orientation: Yes Person, Yes Time, Yes Place Level of alertness: Alert Behavior: cooperative, withdrawn Psychomotor activity: Slowed Eye Contact: Maintains Eye Contact Mood Description: Depressed, Anxious Affect description: congruent with mood, dysphoric Speech Volume: Soft/Quiet Speech pattern: coherent, slowed Language & Vocabulary: consistent with education Thought Process: Linear, Goal Oriented Thought Content: Yes Guilt Perceptual Disturbances: No Auditory hallucinations, No Visual hallucinations Attention Span Ability: Capable of Focused Attention Memory Description: Grossly Intact Patient Reliability: Reliable Historian Fund of knowledge: Yes abstraction ability, Yes aware of current events Intelligence Estimate: Average Judgment: Limited Insight: Partial
[2018-02-02] MEDS: Ibuprofen 600 MG TABLET PO PRN (18:07)
[2018-02-02] MEDS: Mirtazapine 15 MG TABLET PO SCH (20:56)
[2018-02-02] MEDS: hydrOXYzine pamoate 25 MG CAPSULE PO PRN (23:10)
[2018-02-03] MEDS: Budesonide/Formoterol 160/4.5 MDI IH SCH ×2 (09:17→20:27)
[2018-02-03] MEDS: NALTREXONE HCL 50 MG TABLET PO SCH (09:19)
[2018-02-03] MEDS: Ibuprofen 600 MG TABLET PO PRN ×2 (09:34→20:40)
--- NOTE | 2018-02-03 12:31 | Psychiatry Progress Note ---
Date of Encounter: 02/03/18 Time of Encounter: 10:50 Subjective Interval history: Dylan is seen today for follow-up of his severe depression and anxiety symptoms. Patient also struggles with alcohol dependence. He has legal issues at present and is very stressed about this. He reports that he recently broke up with his girlfriend of 8 years and he is trying to figure out how to deal with this. Patient is lying in bed and does not appear to be attending groups. Encourage patient to attend group and unit activities to gain coping strategies. Patient reports he is having some difficulty with sleep at nighttime. He states he struggles with migraines was exacerbates his depression. He denies a headache right now. He does continue to intermittent suicidal ideations without plan. "I am still pretty depressed." Review of Systems Constitutional: Denies: fever, chills, weakness, weight change Eyes: Denies: eye pain, vision change Ears, Nose, Throat: Denies: ear pain, throat pain, dental pain, hearing loss, congestion Cardiovascular: Denies: chest pain, palpitations, dyspnea on exertion Respiratory: Denies: cough, dyspnea, wheezes Gastrointestinal: Denies: abdominal pain, nausea, vomiting, diarrhea, constipation Musculoskeletal: Denies: joint swelling, joint pain Neurological: Reports: headache Psychiatric: Reports: depression, anxiety, abnormal sleep pattern, suicidal ideation, difficulty concentrating, hopelessness Results - Vital Signs Vital Signs: Temp Pulse Resp BP 98.3 F 70 18 142/84 02/02/18 20:09 02/02/18 20:09 02/02/18 20:09 02/02/18 20:09 Assessment and Plan (1) Major depress dis, severe Current visit: No Status: Acute Plan: Continue hospitalization, Close observation, Suicide Precautions per unit protocol, Encourage participation in unit milieu, Group Therapy, Monitor sleep, Monitor appetite Additional Plan: Continue Trazodone. Continue zoloft. Continue low dose Remeron for now. Risks, benefits, side effects, alternatives discussed w/pt: Yes Patient agreeable to treatment: Yes (2) Alcoholism Current visit: No Status: Chronic Additional Plan: Monitor for w/d symptoms. Vitals currently stable. Risks, benefits, side effects, alternatives discussed w/pt: Yes Patient agreeable to treatment: Yes Consult Discharge Plan - Plan [facility]errals: [facility], [facility] [Outside] - 02/10/18 2:00 pm (The above appointment is with Kristyn for outpatient mental health and substance abuse counseling services. If you need transportation assistance to and from this appointment, please call [facility] Transportation Services at [phone] at least 4 business days prior to this appointment.) Mago Esposito [Advanced Practice Nurse] - 02/14/18 10:30 am (The above appointment is with Mago Esposito CNP, at Primary Care within [facility]. This appointment is to establish you with a primary care provider. Your needs for medication and/or Vivitrol will be assessed and treated as indicated as well. Please arrive 15 minutes early to complete paperwork. Please bring your insurance card, photo ID and list of current medications to your first appointment. The above appointment(s) reflects first availability. You may contact the office regularly to check for cancellations that may allow you to be seen sooner. If you need transportation assistance to and from this appointment, please call [facility] Transportation Services at [phone] at least 4 business days prior to this appointment.) Psychiatry Exam - Constitutional Vitals: Temp Pulse Resp BP 98.3 F 70 18 142/84 02/02/18 20:09 02/02/18 20:09 02/02/18 20:09 02/02/18 20:09 General appearance: unkempt, disheveled - Musculoskeletal Gait: slow Station: stooped Strength & Tone: normal for patient - Psychiatric Patient Orientation: Yes Person, Yes Time, Yes Place, Yes Circumstance Level of alertness: Alert Behavior: calm, cooperative Psychomotor activity: Normal Eye Contact: Fleeting Contact Mood Description: Depressed Affect description: dysphoric Speech Volume: Normal Speech pattern: normal rate, normal rhythm, normal tone Language & Vocabulary: consistent with education Thought Process: Linear Thought Content: Yes Suicidal ideation, No Homicidal ideation Perceptual Disturbances: No Auditory hallucinations, No Visual hallucinations Attention Span Ability: Capable of Focused Attention Memory Description: Grossly Intact Patient Reliability: Reliable Historian Fund of knowledge: Yes abstraction ability, Yes average Intelligence Estimate: Average Judgment: Limited Insight: Minimal
[2018-02-03] MEDS: Gabapentin 100 MG CAPSULE PO SCH (20:24)
[2018-02-03] MEDS: Mirtazapine 15 MG TABLET PO SCH (20:25)
[2018-02-04] MEDS: NALTREXONE HCL 50 MG TABLET PO SCH (08:40)
[2018-02-04] MEDS: Ibuprofen 600 MG TABLET PO PRN ×2 (08:46→23:01)
[2018-02-04] MEDS: Budesonide/Formoterol 160/4.5 MDI IH SCH ×2 (08:47→20:31)
--- NOTE | 2018-02-04 11:02 | Psychiatry Progress Note ---
Date of Encounter: 02/04/18 Time of Encounter: 10:30 Subjective Interval history: Patient is seen today for follow-up of his depression and anxiety. He continues to report a headache but states that it has been going on for 2 months. Unable to describe symptoms beyond this. He does state that time meds are somewhat helpful. He reports continued difficulty with sleep. He does feel depressed because he physically does not feel well. He reported to staff that he had a plan to shoot himself if he was discharged. To this provider he denies suicidal ideations. He was fixated on upcoming court dates which apparently had been removed. He is willing to make adjustments in medication to help with sleep and mood. Review of Systems Constitutional: Denies: fever, chills, weakness, weight change Eyes: Denies: eye pain, vision change Ears, Nose, Throat: Denies: ear pain, throat pain, dental pain, hearing loss, congestion Cardiovascular: Denies: chest pain, palpitations, dyspnea on exertion Respiratory: Denies: cough, dyspnea, wheezes Gastrointestinal: Denies: abdominal pain, nausea, vomiting, diarrhea, constipation Musculoskeletal: Denies: joint swelling, joint pain Neurological: Reports: headache Psychiatric: Reports: depression, anxiety, abnormal sleep pattern, suicidal ideation, difficulty concentrating, hopelessness Results - Vital Signs Vital Signs: Temp Pulse Resp BP 98.3 F 85 16 129/84 02/04/18 08:20 02/04/18 08:20 02/04/18 08:20 02/04/18 08:20 Assessment and Plan (1) Major depress dis, severe Current visit: No Status: Acute Plan: Continue hospitalization, Close observation, Suicide Precautions per unit protocol, Encourage participation in unit milieu, Group Therapy, Monitor sleep, Monitor appetite Additional Plan: We will increase trazodone. Taper Remeron. Consider adjunctive treatment to Zoloft but for now continue Zoloft at current dosage. Patient is not participating in any group or unit activities. I encouraged him to do so. Encouraged patient to eat meals with peers and shower. Risks, benefits, side effects, alternatives discussed w/pt: Yes Patient agreeable to treatment: Yes (2) Alcoholism Current visit: No Status: Chronic Risks, benefits, side effects, alternatives discussed w/pt: Yes Patient agreeable to treatment: Yes Consult Discharge Plan - Plan Referrals: [facility] [Outside] - 02/10/18 2:00 pm (The above appointment is with Kristyn for outpatient mental health and substance abuse counseling services. If you need transportation assistance to and from this appointment, please call [facility] Transportation Services at [phone] at least 4 business days prior to this appointment.) Mago Esposito [Advanced Practice Nurse] - 02/14/18 10:30 am (The above appointment is with Mago Esposito CNP, at Primary Care within [facility]. This appointment is to establish you with a primary care provider. Your needs for medication and/or Vivitrol will be assessed and treated as indicated as well. Please arrive 15 minutes early to complete paperwork. Please bring your insurance card, photo ID and list of current medications to your first appointment. The above appointment(s) reflects first availability. You may contact the office regularly to check for cancellations that may allow you to be seen sooner. If you need transportation assistance to and from this appointment, please call [facility] Transportation Services at [phone] at least 4 business days prior to this appointment.) Psychiatry Exam - Constitutional Vitals: Temp Pulse Resp BP 98.3 F 85 16 129/84 02/04/18 08:20 02/04/18 08:20 02/04/18 08:20 02/04/18 08:20 General appearance: unkempt - Musculoskeletal Gait: other (Patient lying in bed) Station: relaxed Strength & Tone: normal for patient - Psychiatric Patient Orientation: Yes Person, Yes Time, Yes Place, Yes Circumstance Level of alertness: Alert Behavior: uncooperative, guarded Psychomotor activity: Normal Eye Contact: Minimal Contact Mood Description: Depressed Affect description: blunted Speech Volume: Normal Speech pattern: normal rate, normal rhythm, normal tone Language & Vocabulary: consistent with education Thought Process: Intact Thought Content: Yes Suicidal ideation, No Homicidal ideation Perceptual Disturbances: No Auditory hallucinations, No Visual hallucinations Attention Span Ability: Capable of Focused Attention Memory Description: Grossly Intact Patient Reliability: Questionable Historian Fund of knowledge: Yes abstraction ability, Yes average Intelligence Estimate: Average Judgment: Limited Insight: Minimal
[2018-02-04] MEDS ORDERED: traZODone 50 MG TABLET PO PRN (11:04)
[2018-02-04] MEDS: hydrOXYzine pamoate 25 MG CAPSULE PO PRN (20:25)
[2018-02-04] MEDS: Gabapentin 100 MG CAPSULE PO SCH (20:25)
--- NOTE | 2018-02-05 08:23 | Psychiatry Progress Note ---
Date of Encounter: 02/05/18 Time of Encounter: 08:15 Subjective Interval history: Patient seen today for follow-up. Patient remains depressed. He states he is not sleeping well. He continues to report vague suicidal ideation to staff other denies suicidal ideation to this provider. "I am just not doing well." Patient reports that the trazodone made him sleepy about 2:00 in the morning and now he feels groggy. Review of Systems Psychiatric: Reports: depression, anxiety, abnormal sleep pattern, suicidal ideation, difficulty concentrating, hopelessness Results - Vital Signs Vital Signs: Temp Pulse Resp BP 98.4 F 76 18 129/77 02/04/18 19:43 02/04/18 19:43 02/04/18 19:43 02/04/18 19:43 Assessment and Plan (1) Major depress dis, severe Current visit: No Status: Acute Plan: Continue hospitalization, Close observation, Suicide Precautions per unit protocol, Encourage participation in unit milieu, Group Therapy, Monitor sleep, Monitor appetite Additional Plan: Taper trazodone. Restart Remeron. Encourage group attendance. Risks, benefits, side effects, alternatives discussed w/pt: Yes Patient agreeable to treatment: Yes (2) Alcoholism Current visit: No Status: Chronic Plan: Continue hospitalization Additional Plan: Monitor for w/d symptoms. Vitals currently stable. Risks, benefits, side effects, alternatives discussed w/pt: Yes Patient agreeable to treatment: Yes Consult Discharge Plan - Plan Referrals: [facility] [Outside] - 02/10/18 2:00 pm (The above appointment is with Kristyn for outpatient mental health and substance abuse counseling services. If you need transportation assistance to and from this appointment, please call [facility] Transportation Services at [phone] at least 4 business days prior to this appointment.) Mago Esposito [Advanced Practice Nurse] - 02/14/18 10:30 am (The above appointment is with Mago Esposito CNP, at Primary Care within [facility]. This appointment is to establish you with a primary care provider. Your needs for medication and/or Vivitrol will be assessed and treated as indicated as well. Please arrive 15 minutes early to complete paperwork. Please bring your insurance card, photo ID and list of current medications to your first appointment. The above appointment(s) reflects first availability. You may contact the office regularly to check for cancellations that may allow you to be seen sooner. If you need transportation assistance to and from this appointment, please call [facility] Transportation Services at [phone] at least 4 business days prior to this appointment.) Psychiatry Exam - Constitutional Vitals: Temp Pulse Resp BP 98.4 F 76 18 129/77 02/04/18 19:43 02/04/18 19:43 02/04/18 19:43 02/04/18 19:43 General appearance: unkempt, disheveled - Musculoskeletal Gait: other (laying in bed) Station: relaxed Strength & Tone: normal for patient - Psychiatric Patient Orientation: Yes Person, Yes Time, Yes Place Level of alertness: Alert Behavior: calm, cooperative Psychomotor activity: Normal Eye Contact: Fleeting Contact Mood Description: Depressed Affect description: blunted Speech Volume: Normal Speech pattern: normal rate, normal rhythm, normal tone Language & Vocabulary: consistent with education Thought Process: Intact, Goal Oriented Thought Content: Yes Suicidal ideation Perceptual Disturbances: No Auditory hallucinations, No Visual hallucinations Attention Span Ability: Capable of Focused Attention Memory Description: Grossly Intact Patient Reliability: Questionable Historian Fund of knowledge: Yes abstraction ability, Yes average, No aware of current events Intelligence Estimate: Average Judgment: Limited Insight: Minimal
[2018-02-05] MEDS: NALTREXONE HCL 50 MG TABLET PO SCH (09:02)
[2018-02-05] MEDS: Budesonide/Formoterol 160/4.5 MDI IH SCH ×2 (09:04→21:39)
[2018-02-05] MEDS ORDERED: Mirtazapine 15 MG TABLET PO SCH (21:00)
[2018-02-05] MEDS: hydrOXYzine pamoate 25 MG CAPSULE PO PRN (21:40)
[2018-02-05] MEDS: Ibuprofen 600 MG TABLET PO PRN (23:55)
[2018-02-06] MEDS: NALTREXONE HCL 50 MG TABLET PO SCH (08:39)
[2018-02-06] MEDS: Budesonide/Formoterol 160/4.5 MDI IH SCH ×2 (10:19→21:20)
--- NOTE | 2018-02-06 12:18 | Psychiatry Progress Note ---
Date of Encounter: 02/06/18 Time of Encounter: 09:40 Subjective Interval history: Dylan is seen today for follow-up. He remains withdrawn to his room. He states the Remeron did not help him sleep. We discussed that this may be because he is sleeping during the day and not active. He denies suicidal ideations today. He is willing to adjust his Remeron. Encouraged him to attend group and unit activities and stay out of his room during the daytime. Patient verbalizes understanding. Review of Systems Psychiatric: Reports: depression, anxiety, abnormal sleep pattern, suicidal ideation, difficulty concentrating, hopelessness Results - Vital Signs Vital Signs: Temp Pulse Resp BP 98.4 F 75 20 122/83 02/06/18 09:00 02/06/18 09:00 02/06/18 09:00 02/06/18 09:00 Assessment and Plan (1) Major depress dis, severe Current visit: No Status: Acute Plan: Continue hospitalization, Close observation, Suicide Precautions per unit protocol, Encourage participation in unit milieu, Group Therapy, Monitor sleep, Monitor appetite Additional Plan: We will increase Remeron to 30 mg by mouth daily at bedtime. Encourage group attendance and activity during the day. We will discourage sleeping during the day because it is this regulating patient 's sleep cycle. Consider DC tomorrow if improvement in mood continues. Risks, benefits, side effects, alternatives discussed w/pt: Yes Patient agreeable to treatment: Yes (2) Alcoholism Current visit: No Status: Chronic Risks, benefits, side effects, alternatives discussed w/pt: Yes Patient agreeable to treatment: Yes Consult Discharge Plan - Plan Referrals: [facility] [Outside] (You are going into residential substance abuse treatment at [facility] on discharge from the hospital. While there, clinic staff will open a case for you to become a client, and you will be seen daily by the clinic counselors and case picker, both individually and in group. Your mental health treatment needs will be addressed concurrently. You will also be scheduled to see the psychiatric provider for outpatient psychiatric assessment, evaluation of need for medication assisted treatment, and medication management. ) Mago Esposito [Advanced Practice Nurse] - 02/14/18 10:30 am (The above appointment is with Mago Esposito CNP, at Primary Care within [facility]. This appointment is to establish you with a primary care provider. Your needs for medication and/or Vivitrol will be assessed and treated as indicated as well. Please arrive 15 minutes early to complete paperwork. Please bring your insurance card, photo ID and list of current medications to your first appointment. The above appointment(s) reflects first availability. You may contact the office regularly to check for cancellations that may allow you to be seen sooner. If you need transportation assistance to and from this appointment, please call [facility] Transportation Services at [phone] at least 4 business days prior to this appointment.) Psychiatry Exam - Constitutional Vitals: Temp Pulse Resp BP 98.4 F 75 20 122/83 02/06/18 09:00 02/06/18 09:00 02/06/18 09:00 02/06/18 09:00 General appearance: unkempt - Musculoskeletal Gait: other (Laying in bed) Station: stooped Strength & Tone: normal for patient - Psychiatric Patient Orientation: Yes Person, Yes Time, Yes Place, Yes Circumstance Level of alertness: Alert Behavior: calm Psychomotor activity: Normal Eye Contact: Maintains Eye Contact Mood Description: Depressed Affect description: congruent with mood Speech Volume: Normal, Loud, Soft/Quiet Speech pattern: normal rate, normal rhythm, normal tone Language & Vocabulary: consistent with education Thought Process: Intact, Linear Thought Content: No Suicidal ideation, No Homicidal ideation Perceptual Disturbances: No Auditory hallucinations, No Visual hallucinations Attention Span Ability: Capable of Focused Attention Memory Description: Grossly Intact Patient Reliability: Questionable Historian Fund of knowledge: Yes average Intelligence Estimate: Average Judgment: Limited Insight: Minimal
[2018-02-06] MEDS: Ibuprofen 600 MG TABLET PO PRN (13:34)
[2018-02-06] MEDS ORDERED: Mirtazapine 15 MG TABLET PO SCH (21:00)
[2018-02-07] MEDS: Ibuprofen 600 MG TABLET PO PRN ×2 (01:40→10:56)
[2018-02-07] MEDS: NALTREXONE HCL 50 MG TABLET PO SCH (08:59)
[2018-02-07] MEDS: Budesonide/Formoterol 160/4.5 MDI IH SCH (09:00)
--- NOTE | 2018-02-07 10:05 | Discharge Summary ---
Date of Encounter: 02/07/18 Time of Encounter: 09:00 Diagnosis - Discharge Diagnosis (1) Major depress dis, severe Priority: Primary Status: Acute (2) Alcoholism Priority: Secondary Status: Chronic Medications - Discharge Medications Prescriptions: Ibuprofen 600 mg PO Q8HR PRN #30 tablet PRN Reason: Pain Budesonide/Formoterol 160/4.5 [Symbicort 160/4.5] 1 puff IH BIDR #1 inhaler Dicyclomine [Bentyl] 20 mg PO Q6H PRN #60 capsule PRN Reason: Abdominal Cramping Naltrexone HCl 50 mg PO DAILY #30 tablet Sertraline [Zoloft] 150 mg PO DAILY #45 tablet Tetrahydrozoline [Visine] 1 drop BOTH EYES QID PRN #1 bottle PRN Reason: Itching traZODone [TraZODone] 150 mg PO HS PRN #90 tablet PRN Reason: Insomnia Budesonide/Formoterol 160/4.5 [Symbicort 160/4.5] 1 puff IH BIDR #1 inhaler 08/17 [Rx] Dicyclomine [Bentyl] 20 mg PO Q6H PRN #60 capsule 02/07/18 [Rx] Ibuprofen 600 mg PO Q8HR PRN #30 tablet 02/07/18 [Rx] Naltrexone HCl 50 mg PO DAILY #30 tablet 02/07/18 [Rx] Sertraline [Zoloft] 150 mg PO DAILY #45 tablet 02/07/18 [Rx] Tetrahydrozoline [Visine] 1 drop BOTH EYES QID PRN #1 bottle 02/07/18 [Rx] traZODone [TraZODone] 150 mg PO HS PRN #90 tablet 02/07/18 [Rx] 3 Allergy/AdvReac Type Severity Reaction Status Date / Time quetiapine [From Seroquel] AdvReac Agitated Verified 01/28/18 01:31 Provider Date of admission: 01/27/18 22:35 Primary care physician: LUIS NONE Discharging clinician: Krysten Mata Psychiatry Exam - Constitutional Vitals: Temp Pulse Resp BP 99.7 F H 76 16 132/85 02/06/18 21:00 02/06/18 21:00 02/06/18 21:00 02/06/18 21:00 General appearance: age & developmentally appropriate, unkempt - Musculoskeletal Gait: normal Station: relaxed Strength & Tone: normal for patient - Psychiatric Patient Orientation: Yes Person Level of alertness: Alert Behavior: calm, cooperative Psychomotor activity: Normal Eye Contact: Maintains Eye Contact Mood Description: Euthymic/stable Affect description: congruent with mood, full range Speech Volume: Normal Speech pattern: normal rate, normal rhythm, normal tone Language & Vocabulary: consistent with education Thought Process: Linear, Goal Oriented Thought Content: No Suicidal ideation, No Homicidal ideation, No Overt delusions Perceptual Disturbances: No Auditory hallucinations, No Visual hallucinations Attention Span Ability: Capable of Focused Attention Memory Description: Grossly Intact Patient Reliability: Reliable Historian Fund of knowledge: Yes abstraction ability, Yes average Intelligence Estimate: Average Judgment: Limited Insight: Partial Hospital Course Hospital course: Mr. Valadez is a 67 year old male with a history of depression and anxiety as well as alcohol dependence who presented to the hospital with increasing depression and a plan to kill himself. He was admitted to for psychiatric stabilization. Patient was incorporated into the therapeutic milieu and offer group and individual as well as recreational therapies. He was also offered psychoeducational materials and supportive therapy. He was placed on suicide precautions and close observation. Patient was restarted on home medications and Zoloft was increased to 150 mg. Patient was started on Remeron for sleep and the trazodone was initially tapered. Patient started to have worsening symptoms with sleep and requested to go back, trazodone. He was restarted on trazodone prior to discharge. Throughout the course the hospital stay the patient's mood improved slowly. He did report a number of physical complaints including headache at times. He had difficulty sleeping but also spent most of the time in bed. He did verbalize his needs to peers and staff. At the time of discharge patient was agreeable to follow-up as an outpatient and transfer to [facility] for alcohol dependence treatment. At the time of discharge she denied suicidal or homicidal ideation, intent or plan. Patient is willing to return to the hospital with worsening symptoms. Does patient wish to continue nicotine replacement upon disc: No - Time Spent with Patient Total time spent providing and/or coordinating discharge services: Less than 30 minutes Assessment and Plan - Patient/Caregiver Discharge Instructions Activity: resume usual activities as tolerated Diet: regular diet - Follow up Plan Follow up with: [facility] [Outside] (You are going into residential substance abuse treatment at [facility] on discharge from the hospital. While there, clinic staff will open a case for you to become a client, and you will be seen daily by the clinic counselors and gearcase assembler, both individually and in group. Your mental health treatment needs will be addressed concurrently. You will also be scheduled to see the psychiatric provider for outpatient psychiatric assessment, evaluation of need for medication assisted treatment, and medication management. ) Mago Esposito [Advanced Practice Nurse] - 02/14/18 10:30 am (The above appointment is with Mago Esposito CNP, at Primary Care within [facility]. This appointment is to establish you with a primary care provider. Your needs for medication and/or Vivitrol will be assessed and treated as indicated as well. Please arrive 15 minutes early to complete paperwork. Please bring your insurance card, photo ID and list of current medications to your first appointment. The above appointment(s) reflects first availability. You may contact the office regularly to check for cancellations that may allow you to be seen sooner. If you need transportation assistance to and from this appointment, please call [facility] Transportation Services at [phone] at least 4 business days prior to this appointment.) Functional capacity at discharge: independent ambulation Overall status at discharge: Stable Disposition: Home, Self-Care Quality - Multiple Antipsychotics Patient discharged on 2 or more antipsychotic medications: No Procedures - Procedures Procedures: Medication Management, Crisis Stabilization, Supportive Therapy, Group Therapy, Psychoeducational Therapy
[2018-02-07 10:50] VITALS: BP 135/80
== END 2018-02-07 13:45 | disposition other institution (70) | DRG 885 ==
LOC: SUATTDRO 22:35 → 1ANU 22:35
PROVIDERS: ADMIT Psychiatry & Neurology Psychiatry; ATTEND Student in an Organized Health Care Education/Training Program